=== PATIENT | male | born 1965 | race Caucasian/White ===

== ENCOUNTER 2021-04-22 14:11 | Emergency (ER) | payer BC ==
[2021-04-22 15:41] LABS: Absolute Lymphocytes (CBC) 2.3 K/uL (0.7-4.9); Basophils % 0.3 % (0-1.3); Hematocrit 36.3 % (39.6-49.0); Lymphocytes % 31.9 % (15.3-44.8); RBC Red Blood Cell Count 3.67 M/uL (4.33-5.43)
[2021-04-22 15:48] LABS: Protime INR 1.14
[2021-04-22 16:13] LABS: ALT/SGPT 85 U/L (12-78); AST/SGOT 49 U/L (15-37); Albumin 3.6 g/dL (3.4-5.0); Alkaline Phosphatase 112 U/L (45-117); BUN Blood Urea Nitrogen 59 mg/dL (7-18); Bicarbonate 20 mmol/L (21-32); Bilirubin Direct 0.4 mg/dL (0-0.2); Glucose Level 88 mg/dL (74-106); Magnesium 1.9 mg/dL (1.8-2.4); NT PRO-BNP 66 pg/mL (<125); Potassium 5.2 mmol/L (3.5-5.1); Protein, Total 8.3 g/dL (6.4-8.2); Sodium Level 136 mmol/L (136-145); Troponin (Emerg Dept Use Only) < 0.02 ng/mL (0.0-0.045)
--- NOTE | 2021-04-22 16:20 | RAD REPORT ---
EXAM DESCRIPTION: RAD - Chest Single View - 04/22/2021 3:58 pm CLINICAL HISTORY: CHEST PAIN, shortness of breath COMPARISON: February 2018 TECHNIQUE: AP portable chest image was obtained 04/22/2021 3:58 pm . FINDINGS: No peripheral mass or consolidation. Heart, vasculature and lung markings are all accentua gail by portable technique and large body habitus affects. Trachea is midline. Grid artifact is presen t. Heart and vasculature are within range of normal. Small spiculated density seen in the upper right chest 2018 is not seen the current examination. No measurable pleural effusion and no pneumothorax. No acute bony abnormality seen. No acute aortic findings suspected. IMPRESSION: Limited portable chest without acute cardiopulmonary finding.
--- NOTE | 2021-04-22 17:05 | EDPHYS ---
Physician Documentation [facility] Name: Imtiaz Gold Age: 56 yrs Sex: Male : 1965 Arrival Date: 04/22/2021 Time: 14:15 Bed 2 Private MD: ED Physician Isabel Canela HPI: 04/22 16:59 This 56 yrs old Male presents to ER via Ambulatory with complaints of High ma2 Potassium. 16:59 elevated potassium to 6.2. Onset: The symptoms/episode began/occurred suddenly, 1 ma2 week(s) ago. Severity of symptoms: At their worst the symptoms were very mild in the emergency department the symptoms have resolved. was sent here by pcp for potassium of 6.2, however when re-checked here potassium is 5.2 has ckd as well, no symptoms. Historical: - Allergies: 14:46 Morphine; ss 14:46 Tomato (Solanum Lycopersicum); ss - PMHx: 14:46 Hypertension; Cirrhosis; ss - PSHx: 14:46 bowel resection; Hernia repair; ss - Immunization history:: Adult Immunizations unknown. - Social history:: Patient/guardian denies using alcohol, street drugs, The patient lives with family. - Family history:: not pertinent. ROS: 16:59 Constitutional: Negative for fever, chills, and weight loss. ma2 16:59 All other systems are negative. Exam: 16:59 Constitutional: This is a well developed, well nourished patient who is awake, alert, ma2 and in no acute distress. ENT: Nares patent. No nasal discharge, no septal abnormalities noted. Tympanic membranes are normal and external auditory canals are clear. Oropharynx with no redness, swelling, or masses, exudates, or evidence of obstruction, uvula midline. Mucous membranes moist. Neck: Trachea midline, no thyromegaly or masses palpated, and no cervical lymphadenopathy. Supple, full range of motion without nuchal rigidity, or vertebral point tenderness. No Meningismus. Chest/axilla: Normal chest wall appearance and motion. Nontender with no deformity. No lesions are appreciated. Cardiovascular: Regular rate and rhythm with a normal S1 and S2. No gallops, murmurs, or rubs. Normal PMI, no JVD. No pulse deficits. Respiratory: Lungs have equal breath sounds bilaterally, clear to auscultation and percussion. No rales, rhonchi or wheezes noted. No increased work of breathing, no retractions or nasal flaring. Abdomen/GI: Soft, non-tender, with normal bowel sounds. No distension or tympany. No guarding or rebound. No evidence of tenderness throughout. Skin: Warm, dry with normal turgor. Normal color with no rashes, no lesions, and no evidence of cellulitis. MS/ Extremity: Pulses equal, no cyanosis. Neurovascular intact. Full, normal range of motion. Neuro: Awake and alert, GCS 15, oriented to person, place, time, and situation. Cranial nerves II-XII grossly intact. Motor strength 5/5 in all extremities. Sensory grossly intact. Cerebellar exam normal. Normal gait. Vital Signs: 14:42 BP 95 / 57; Pulse 57; Resp 17; Temp 97.6; Pulse Ox 100% on R/A; Weight 144.7 kg; Height ss 5 ft. 10 in. (177.80 cm); Pain 0/10; 16:19 BP 110 / 60; Pulse 67; Resp 16; Pulse Ox 98% on R/A; ph 14:42 Body Mass Index 45.77 (144.70 kg, 177.80 cm) ss MDM: 15:00 Patient medically screened. ma2 16:59 Differential Diagnosis elevated k d/t spironolactone or ckd, vs false high k. . Data ma2 reviewed: vital signs, nurses notes. Counseling: I had a detailed discussion with the patient and/or guardian regarding: the historical points, exam findings, and any diagnostic results supporting the discharge/admit diagnosis, the presence of at least one elevated blood pressure reading (>120/80) during this emergency department visit, the need for outpatient follow up. ED course: k is 5.2 patient has ckd. he needs f/u with consumer insights specialist. he want to f/u with [facility]. i offered to discussed with local consumer insights specialist and arrange a f/u. patient declined and he want to see his pcp and request referral . 04/22 14:49 Order name: Basic Metabolic Panel; Complete Time: 16:38 ma2 04/22 14:49 Order name: CBC with Diff; Complete Time: 16:17 ma2 04/22 14:49 Order name: LFT's; Complete Time: 16:38 ma2 04/22 14:49 Order name: Magnesium; Complete Time: 16:38 ma2 04/22 14:49 Order name: NT PRO-BNP; Complete Time: 16:38 ma04/22 14:49 Order name: PT-INR; Complete Time: 16:17 ma2 04/22 14:49 Order name: Troponin (emerg Dept Use Only); Complete Time: 16:38 ma2 04/22 14:49 Order name: XRAY Chest (1 view); Complete Time: 16:38 ma2 04/22 14:49 Order name: EKG; Complete Time: 14:50 ma2 04/22 14:49 Order name: Cardiac monitoring; Complete Time: 16:20 04/22 14:49 Order name: EKG - Nurse/Tech; Complete Time: 16:20 ma2 04/22 14:49 Order name: IV Saline Lock; Complete Time: 15:37 ma2 04/22 14:49 Order name: Labs collected and sent; Complete Time: 16:20 2 04/22 14:49 Order name: O2 Per Protocol; Complete Time: 16:20 ma04/22 14:49 Order name: O2 Sat Monitoring; Complete Time: 16:20 ma2 Administered Medications: No medications were administered Disposition: 04/22/21 17:05 Discharged to Home. Impression: Hyperkalemia - mild. - Condition is Stable. - Discharge Instructions: Hyperkalemia, Hyperkalemia, [id number]. - Medication Reconciliation Form, Thank You Letter, Antibiotic Education, Prescription Opioid Use form. - Follow up: Private Physician; When: Tomorrow; Reason: Continuance of care. - Notes: follow up with consumer insights specialist in 2 days Signatures: Dispatcher [employer] EDBrianne Weathers RN RN Geetha Kate RN RN Isabel Canela MD MD ma2 Tatyana Scott RN RN tr6 Corrections: (The following items were deleted from the chart) 17:25 17:05 04/22/2021 17:05 Discharged to Home. Impression: Hyperkalemia - mild. Condition tr6 is Stable. Forms are Medication Reconciliation Form, Thank You Letter, Antibiotic Education, Prescription Opioid Use. Follow up: Private Physician; When: Tomorrow; Reason: Continuance of care. ma2
--- NOTE | 2021-04-22 17:05 | ER ---
Nurse's Notes [facility] Name: Imtiaz Gold Age: 56 yrs Sex: Male : 1965 Arrival Date: 04/22/2021 Time: 14:15 Bed 2 Private MD: Diagnosis: Hyperkalemia-mild Presentation: 04/22 14:42 Chief complaint: Patient states: Saw his doctor Wednes and today. K 6.2 today. Was ss told to come to ER and get checked. Slightly SOB for 6 months. Dry, hacking cough with slight memory loss lately. Coronavirus screen: Client denies travel out of the [place] in the last 14 days. At this time, the client does not indicate any symptoms associated with coronavirus-19. Ebola Screen: Patient denies travel to an Ebola-affected area in the 21 days before illness onset. Initial Sepsis Screen: Does the patient meet any 2 criteria? No. Patient's initial sepsis screen is negative. Does the patient have a suspected source of infection? No. Patient's initial sepsis screen is negative. Risk Assessment: Do you want to hurt yourself or someone else? Patient reports no desire to harm self or others. Onset of symptoms was April 20, 2021. 14:42 Method Of Arrival: Ambulatory ss 14:42 Acuity: CHAD 2 ss Historical: - Allergies: 14:46 Morphine; ss 14:46 Tomato (Solanum Lycopersicum); ss - PMHx: 14:46 Hypertension; Cirrhosis; ss - PSHx: 14:46 bowel resection; Hernia repair; ss - Immunization history:: Adult Immunizations unknown. - Social history:: Patient/guardian denies using alcohol, street drugs, The patient lives with family. - Family history:: not pertinent. Screenin:19 Abuse screen: Denies threats or abuse. Denies injuries from another. Nutritional ph screening: No deficits noted. Tuberculosis screening: No symptoms or risk factors identified. Fall Risk None identified. Assessment: 15:58 General: Appears in no apparent distress. comfortable, well groomed, Behavior is calm, ph cooperative, appropriate for age. Pain: Denies pain. Neuro: Level of Consciousness is awake, alert, obeys commands, Oriented to person, place, time, situation. Cardiovascular: Reports shortness of breath, Denies chest pain, nausea, palpitations, vomiting, Capillary refill < 3 seconds in bilateral fingers Patient's skin is warm and dry. Respiratory: Airway is patent Respiratory effort is even, unlabored, Respiratory pattern is regular, symmetrical. Derm: Skin is intact, is healthy with good turgor, Skin is pink, warm \T\ dry. Musculoskeletal: Circulation, motion, and sensation intact. Range of motion: intact in all extremities. Vital Signs: 14:42 BP 95 / 57; Pulse 57; Resp 17; Temp 97.6; Pulse Ox 100% on R/A; Weight 144.7 kg; Height ss 5 ft. 10 in. (177.80 cm); Pain 0/10; 16:19 BP 110 / 60; Pulse 67; Resp 16; Pulse Ox 98% on R/A; ph 14:42 Body Mass Index 45.77 (144.70 kg, 177.80 cm) ED Course: 14:15 Patient arrived in ED. ds1 14:42 Arm band placed on. 14:45 Triage completed. 14:48 Isabel Canela MD is Attending Physician. ma2 15:49 Inserted saline lock: 20 gauge in right antecubital area, using aseptic technique. ss Blood collected. 15:58 Geetha Kate RN is Primary Nurse. ph 15:58 XRAY Chest (1 view) In Process Unspecified. EDMS 16:20 Patient has correct armband on for positive identification. Bed in low position. Call ph light in reach. Side rails up X 1. Pulse ox on. NIBP on. 17:23 No provider procedures requiring assistance completed. ph 17:24 IV discontinued, intact, bleeding controlled, No redness/swelling at site. Pressure tr6 dressing applied. Administered Medications: No medications were administered Outcome: 17:05 Discharge ordered by . maDee Dee 17:23 Discharged to home ambulatory. tr6 17:23 Condition: good 17:23 Discharge instructions given to patient, Instructed on discharge instructions, follow up and referral plans. safety practices, Demonstrated understanding of instructions, follow-up care, medications. 17:25 Patient left the ED. tr6 Signatures: Dispatcher [employer] EDMI Hannah Fofana ds1 Brianne Bradley RN RN Geetha Kate RN RN Alzahri, Mohammad, MD MD ma2 Ramnanan, Tatyana, RN RN tr6
[2021-04-22 18:02] VITALS: TEMP 97.6
[2021-04-22 18:04] VITALS: BP 110/60; O2SAT 98
== END 2021-04-22 17:25 | disposition home or self-care (01) ==
LOC: ER 14:11
DX: E87.5 Hyperkalemia (principal); I10 Essential (primary) hypertension; K74.60 Unspecified cirrhosis of liver
CPT/HCPCS: 36415; 71045; 80048; 80076; 83735; 83880; 84484; 85025; 85610